=== PATIENT | male | born 1990 | race Caucasian/White ===

== ENCOUNTER 2018-01-27 03:15 | Emergency (ER) | payer OTHER ==
[~2018-01-27] VITALS: Ht 180.3 cm; Wt 92.2 kg
[2018-01-27 03:22] VITALS: BP 139/89
--- NOTE | 2018-01-27 03:22 | NUR ---
PATIENT AMBULATED TO ER BED 12.
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
[2018-01-27] MEDS ORDERED: IBUPROFEN 800 MG TAB PO ONE (03:35)
--- NOTE | 2018-01-27 03:48 | NUR ---
PATIENT TAKEN TO XRAY VIA WHEELCHAIR WITH TECH.
[2018-01-27 04:24] VITALS: BP 128/75
== END 2018-01-27 04:24 | disposition home or self-care (01) ==
LOC: MED 03:15
DX: S39.012A Strain of muscle, fascia and tendon of lower back, initial encounter (principal); R03.0 Elevated blood-pressure reading, without diagnosis of hypertension; M79.652 Pain in left thigh; W22.8XXA Striking against or struck by other objects, initial encounter; Y93.89 Activity, other specified; Y99.0 Civilian activity done for income or pay; Y92.89 Other specified places as the place of occurrence of the external cause
CPT/HCPCS: 72100; 99284